=== PATIENT | male | born 1955 | race Caucasian/White ===

== ENCOUNTER 2018-11-30 16:03 | Observation (INO) | payer MEDICARE ==
--- NOTE | 2018-11-30 16:34 | C.PDOC ---
History Of Present Illness Patient is a 63 year old male, with a PMHx of HTN, who presents to the ED for evaluation of a reported syncopal episode that occurred today while patient was in a restaurant. Patient states that he got dizzy and passed out for a few seconds and got up a few seconds later. Baseline currently feels well. No hx of syncopy. Patient denies any CP and is asymptomatic at this time. Time Seen by Provider: 11/30/18 16:30 Chief Complaint (Nursing): Syncope History Per: Patient History/Exam Limitations: no limitations Onset/Duration Of Symptoms: Hrs Recent travel outside of the [place]: No Additional History Per: Patient Past Medical History Reviewed: Historical Data, Nursing Documentation, Vital Signs Vital Signs: Last Vital Signs Temp 98 F 11/30/18 16:22 Pulse 68 11/30/18 16:22 Resp 16 11/30/18 16:22 BP 138/80 11/30/18 16:22 Pulse Ox 98 11/30/18 16:22 - Medical History PMH: HTN Surgical History: No Surg Hx Family History: States: Hypertension - Social History Hx Tobacco Use: No Hx Alcohol Use: No Hx Substance Use: No - Immunization History Hx Tetanus Toxoid Vaccination: No Hx Influenza Vaccination: No Hx Pneumococcal Vaccination: No Review Of Systems Except As Marked, All Systems Reviewed And Found Negative. Cardiovascular: Negative for: Chest Pain Neurological: Positive for: Dizziness, Other (syncopal episode) Physical Exam - Physical Exam Appears: Non-toxic, No Acute Distress Skin: Normal Color, Warm, Dry Head: Atraumatic, Normacephalic Oral Mucosa: Moist Neck: Normal ROM, Supple Chest: Symmetrical, No Deformity Cardiovascular: Rhythm Regular, No Murmur Respiratory: Normal Breath Sounds, No Rales, No Rhonchi, No Wheezing Gastrointestinal/Abdominal: Soft, No Tenderness Extremity: Normal ROM Neurological/Psych: Oriented x3, Normal Speech, Normal Cognition, Normal Cranial Nerves, Normal Motor, Normal Sensation, Normal Reflexes ED Course And Treatment - Laboratory Results Result Diagrams: 11/30/18 16:44 11/30/18 16:44 ECG: Interpreted By Me, Viewed By Me ECG Rhythm: Sinus Rhythm Interpretation Of ECG: No ST/T wave changes Rate From EC O2 Sat by Pulse Oximetry: 98 (on RA) Medical Decision Making Medical Decision Making: syncope, - ro cardiac metabolci vasovagal. intracranil pathology Plan: CAT Head EKG Labs CXR Urinalysis labs neg ct neg. cxr neg. pmd deb covered by dr robert, who admits to dr alex galvez. Disposition - Disposition Disposition: HOSPITALIZED Disposition Time: 17:37 Condition: STABLE - Clinical Impression Clinical Impression: Syncope Decision To Admit - Pt Status Changed To: Hospital Disposition Of: Observation - . Bed Request Type: Telemetry Admitting Physician: Kane Galvez Patient Diagnosis: Syncope
[2018-11-30 16:48] LABS: BASO % 0.6 % (0.0-2.0); EOS # 0.2 K/uL (0.0-0.7); EOS % 2.7 % (0.0-4.0); LYMPH # 2.6 K/uL (1.0-4.3); LYMPH % 36.4 % (20.0-40.0); MEAN CELL VOLUME 88.8 fL (80.0-94.0); MEAN CORPUSCULAR HEMOGLOBIN 29.8 pg (27.0-31.0); MEAN CORPUSCULAR HGB CONC 33.6 g/dL (33.0-37.0); MEAN PLATELET VOLUME 8.4 fL (7.2-11.7); MONO # 0.4 K/uL (0.0-0.8); MONO % 5.8 % (0.0-10.0); NEUT # 3.9 K/uL (1.8-7.0); NEUT % 54.5 % (50.0-75.0); NRBC % 0.1 % (0.0-2.0); RBC 4.36 Mil/uL (4.40-5.90); RED CELL DISTRIBUTION WIDTH 13.9 % (11.5-14.5); WHITE BLOOD COUNT 7.2 K/uL (4.8-10.8)
[2018-11-30 16:57] LABS: INR 1.1; PROTHROMBIN TIME 11.6 SECONDS (9.7-12.2)
--- NOTE | 2018-11-30 17:07 | CT ---
Date of service: 11/30/2018 PROCEDURE: CT HEAD WITHOUT CONTRAST. HISTORY: syncope COMPARISON: None available. TECHNIQUE: Axial computed tomography images were obtained through the head/brain without intravenous contrast. Supplemental Coronal and Sagittal projections created and reviewed. Radiation dose: Total exam DLP = 1076.02 mGy-cm. This CT exam was performed using one or more of the following dose reduction techniques: Automated exposure control, adjustment of the mA and/or kV according to patient size, and/or use of iterative reconstruction technique. FINDINGS: HEMORRHAGE: No intracranial hemorrhage. BRAIN: No mass effect or edema. No atrophy or chronic microvascular ischemic changes. VENTRICLES: Unremarkable. No hydrocephalus. CALVARIUM: Unremarkable. PARANASAL SINUSES: Unremarkable as visualized. No significant inflammatory changes. MASTOID AIR CELLS: Unremarkable as visualized. No inflammatory changes. OTHER FINDINGS: None. IMPRESSION: No acute intracranial abnormalities. No significant findings to account for the clinical presentation.
[2018-11-30 17:18] LABS: ALB/GLOB RATIO 1.4 (1.0-2.1); ALBUMIN 4.5 g/dL (3.5-5.0); ALT/SGPT 12 U/L (21-72); AST/SGOT 20 U/L (17-59); BLOOD UREA NITROGEN 22 mg/dL (9-20); CALCIUM 9.6 mg/dl (8.6-10.4); GFR NON-AFRICAN AMERICAN 47
--- NOTE | 2018-11-30 17:37 | RAD ---
Date of service: 11/30/2018 PROCEDURE: CHEST RADIOGRAPH, 1 VIEW HISTORY: chest pain COMPARISON: None available. FINDINGS: LUNGS: Clear. PLEURA: No pneumothorax or pleural fluid seen. CARDIOVASCULAR: No aortic atherosclerotic calcification present. No radiographic findings to suggest acute or significant cardiovascular disease. OSSEOUS STRUCTURES: No significant abnormalities. VISUALIZED UPPER ABDOMEN: Normal. OTHER FINDINGS: None. IMPRESSION: No active disease.
[2018-11-30 18:20] LABS: URINE BILIRUBIN NEGATIVE (NEGATIVE); URINE BLOOD NEGATIVE (NEGATIVE); URINE CLARITY Clear (Clear); URINE COLOR Yellow (YELLOW); URINE GLUCOSE (UA) NORMAL (Normal); URINE LEUKOCYTE ESTERASE NEG Leu/uL (Negative); URINE PROTEIN NEGATIVE (NEGATIVE); URINE UROBILINOGEN NORMAL mg/dL (0.2-1.0)
--- NOTE | 2018-11-30 20:12 | CP.PCM.HP ---
Past Patient History - Infectious Disease Hx of Infectious Diseases: None - Past Social History Smoking Status: Never Smoked - CARDIAC Hx Hypertension: Yes - PSYCHIATRIC Hx Substance Use: No - SURGICAL HISTORY Hx Surgeries: No - ANESTHESIA Hx Anesthesia: No Meds Allergies/Adverse Reactions: Allergies Allergy/AdvReac Type Severity Reaction Status Date / Time No Known Allergies Allergy Unverified 11/03/13 11:09 Physical Exam - Constitutional Appears: Well - Head Exam Head Exam: ATRAUMATIC, NORMAL INSPECTION, NORMOCEPHALIC - Eye Exam Eye Exam: EOMI, Normal appearance, PERRL Pupil Exam: NORMAL ACCOMODATION, PERRL - ENT Exam ENT Exam: Mucous Membranes Moist, Normal Exam - Neck Exam Neck exam: Positive for: Normal Inspection - Respiratory Exam Respiratory Exam: Decreased Breath Sounds - Cardiovascular Exam Cardiovascular Exam: REGULAR RHYTHM, +S1, +S2 - GI/Abdominal Exam GI & Abdominal Exam: Diminished Bowel Sounds, Soft - Rectal Exam Rectal Exam: Deferred Results - Vital Signs Recent Vital Signs: Last Vital Signs Temp 98 F 11/30/18 16:22 Pulse 76 11/30/18 17:50 Resp 15 11/30/18 17:50 BP 141/90 11/30/18 17:50 Pulse Ox 98 11/30/18 17:50 - Labs Result Diagrams: 11/30/18 16:44 11/30/18 16:44 Labs: Laboratory Results - last 24 hr 11/30/18 11/30/18 11/30/18 16:31 16:44 16:44 WBC 7.2 RBC 4.36 L Hgb 13.0 Hct 38.7 MCV 88.8 MCH 29.8 MCHC 33.6 RDW 13.9 Plt Count 262 MPV 8.4 Neut % (Auto) 54.5 Lymph % (Auto) 36.4 [place] % (Auto) 5.8 Eos % (Auto) 2.7 Baso % (Auto) 0.6 Neut # (Auto) 3.9 Lymph # (Auto) 2.6 [place] # (Auto) 0.4 Eos # (Auto) 0.2 Baso # (Auto) 0.0 PT 11.6 INR 1.1 APTT 31 Sodium Potassium Chloride Carbon Dioxide Anion Gap BUN Creatinine Est GFR ( Amer) Est GFR (Non-Af Amer) POC Glucose (mg/dL) 186 H Random Glucose Calcium Total Bilirubin AST ALT Alkaline Phosphatase Troponin I Total Protein Albumin Globulin Albumin/Globulin Ratio Urine Color Urine Clarity Urine pH Ur Specific [place] Urine Protein Urine Glucose (UA) Urine Ketones Urine Blood Urine Nitrate Urine Bilirubin Urine Urobilinogen Ur Leukocyte Esterase Urine WBC (Auto) Urine RBC (Auto) Hyaline Casts 11/30/18 11/30/18 16:44 18:07 WBC RBC Hgb Hct MCV MCH MCHC RDW Plt Count MPV Neut % (Auto) Lymph % (Auto) [place] % (Auto) Eos % (Auto) Baso % (Auto) Neut # (Auto) Lymph # (Auto) [place] # (Auto) Eos # (Auto) Baso # (Auto) PT INR APTT Sodium 137 Potassium 4.0 Chloride 100 Carbon Dioxide 28 Anion Gap 14 BUN 22 H Creatinine 1.5 Est GFR ( Amer) 57 Est GFR (Non-Af Amer) 47 POC Glucose (mg/dL) Random Glucose 226 H Calcium 9.6 Total Bilirubin 0.4 AST 20 ALT 12 L Alkaline Phosphatase 84 Troponin I < 0.0120 Total Protein 7.7 Albumin 4.5 Globulin 3.2 Albumin/Globulin Ratio 1.4 Urine Color Yellow Urine Clarity Clear Urine pH 7.0 Ur Specific [place] 1.015 Urine Protein Negative Urine Glucose (UA) Normal Urine Ketones Negative Urine Blood Negative Urine Nitrate Negative Urine Bilirubin Negative Urine Urobilinogen Normal Ur Leukocyte Esterase Neg Urine WBC (Auto) < 1 Urine RBC (Auto) 1 Hyaline Casts 3-5 H
[2018-12-01 11:07] LABS: CK-MB 0.59 ng/mL (0.0-3.38)
--- NOTE | 2018-12-01 15:40 | CP.PCM.PN ---
Subjective - Date & Time of Evaluation Date of Evaluation: 12/01/18 Objective - Vital Signs/Intake and Output Vital Signs (last 24 hours): Temp Pulse Resp BP Pulse Ox 98.1 F 68 20 113/71 97 12/01/18 07:50 12/01/18 07:50 12/01/18 07:50 12/01/18 07:50 12/01/18 07:50 - Medications Medications: Current Medications Heparin Sodium (Porcine) (Heparin) 5,000 units SC Q12 [facility] Last Admin: 12/01/18 13:01 Dose: 5,000 units - Labs Labs: 11/30/18 16:44 11/30/18 16:44 PT 11.6 SECONDS (9.7-12.2) 11/30/18 16:44 INR 1.1 11/30/18 16:44 APTT 31 SECONDS (21-34) 11/30/18 16:44 - Constitutional Appears: Well - Head Exam Head Exam: ATRAUMATIC, NORMAL INSPECTION, NORMOCEPHALIC - Eye Exam Eye Exam: EOMI, Normal appearance, PERRL Pupil Exam: NORMAL ACCOMODATION, PERRL - ENT Exam ENT Exam: Mucous Membranes Moist, Normal Exam - Neck Exam Neck Exam: Full ROM, Normal Inspection. absent: Lymphadenopathy - Respiratory Exam Respiratory Exam: Decreased Breath Sounds - Cardiovascular Exam Cardiovascular Exam: REGULAR RHYTHM, +S1, +S2 - GI/Abdominal Exam GI & Abdominal Exam: Soft, Diminished Bowel Sounds - Rectal Exam Rectal Exam: Deferred
--- NOTE | 2018-12-01 16:17 | MRI ---
Date of service: 12/01/2018 PROCEDURE: MRI BRAIN WITHOUT CONTRAST HISTORY: Rule out stroke versus mass COMPARISON: Comparison made with prior CT scan brain 11/30/2018 TECHNIQUE: Multiplanar, multisequence MR images of the brain were obtained without intravenous contrast enhancement. FINDINGS: HEMORRHAGE: No acute parenchymal, subarachnoid nor extra-axial hemorrhage. No evidence of hemosiderin deposition is identified on gradient echo weighted sequence. DWI: No evidence of an acute or early subacute infarct seen on diffusion imaging. BRAIN PARENCHYMA: Minor chronic periventricular white matter ischemic changes. There are also several small chronic appearing lacunar type infarcts scattered about the deep and subcortical white matter both cerebral hemispheres and both basal nuclei. Mild to moderate generalized volume loss unchanged. VENTRICLES: No obstructive hydrocephalus CRANIUM: Unremarkable. ORBITS: Grossly unremarkable. PARANASAL SINUSES/MASTOIDS: Clear VASCULAR SYSTEM: Visualized major vascular flow voids at skull base patent. OTHER FINDINGS: None. IMPRESSION: No acute intracranial hemorrhage or infarction. Minor chronic periventricular white matter ischemic changes. There are also several small chronic appearing lacunar type infarcts scattered about the deep and subcortical white matter both cerebral hemispheres and both basal nuclei. Mild to moderate generalized volume loss unchanged.
[2018-12-01 17:20] LABS: CK-MB 0.57 ng/mL (0.0-3.38)
[2018-12-01] MEDS: (Novolin R) Insulin Human Regular 100 units/ml vial SC SCH (22:02)
[2018-12-02] MEDS: (Novolin R) Insulin Human Regular 100 units/ml vial SC SCH ×4 (08:32→21:58)
--- NOTE | 2018-12-02 13:06 | CP.PCM.CON ---
History of Present Illness - History of Present Illness History of Present Illness: RECURRENT SYNCOPE VBI/NON CONVULSIVE SEIZURES MRI/CT NO ACUTE PATHOLOGY CONTINUE STROKE PROPHYLAXIS EEG NO AED NEEDS AVEEG - CAN BE DONE AN OP CARDIAC ARRHYTHMIA TO BE RULED OUT MAY NEED EP STUDIES IF ALL WORK UP IS NEGATIVE Past Patient History - Infectious Disease Hx of Infectious Diseases: None - Past Social History Smoking Status: Never Smoked - CARDIAC Hx Hypertension: Yes - PSYCHIATRIC Hx Substance Use: No - SURGICAL HISTORY Hx Surgeries: No - ANESTHESIA Hx Anesthesia: No Meds Allergies/Adverse Reactions: Allergies Allergy/AdvReac Type Severity Reaction Status Date / Time No Known Allergies Allergy Unverified 11/03/13 11:09 - Medications Medications: Current Medications Aspirin (Aspirin) 325 mg PO DAILY [facility] Last Admin: 12/02/18 09:31 Dose: 325 mg Heparin Sodium (Porcine) (Heparin) 5,000 units SC Q12 [facility] Last Admin: 12/02/18 09:31 Dose: 5,000 units Insulin Human Regular (Novolin R) 0 unit SC ACHS [facility]; Protocol Last Admin: 12/02/18 12:08 Dose: Not Given Results - Vital Signs Recent Vital Signs: Last Vital Signs Temp 97.9 F 12/02/18 07:30 Pulse 72 12/02/18 09:00 Resp 20 12/02/18 07:30 BP 117/75 12/02/18 07:30 Pulse Ox 97 12/02/18 09:00 - Labs Result Diagrams: 11/30/18 16:44 11/30/18 16:44 Labs: Laboratory Results - last 24 hr 12/01/18 12/01/18 12/01/18 16:50 17:43 21:15 POC Glucose (mg/dL) 92 123 H Total Creatine Kinase 128 CK-MB (Mass) 0.57 Troponin I < 0.0120 12/02/18 12/02/18 05:50 11:01 POC Glucose (mg/dL) 99 129 H Total Creatine Kinase CK-MB (Mass) Troponin I
[2018-12-02 14:34] LABS: FREE T4 1.57 ng/dL (0.78-2.19)
--- NOTE | 2018-12-02 15:46 | CP.PCM.PN ---
Subjective - Date & Time of Evaluation Date of Evaluation: 12/02/18 Objective - Vital Signs/Intake and Output Vital Signs (last 24 hours): Temp Pulse Resp BP Pulse Ox 97.9 F 72 20 117/75 97 12/02/18 07:30 12/02/18 09:00 12/02/18 07:30 12/02/18 07:30 12/02/18 13:00 - Medications Medications: Current Medications Aspirin (Aspirin) 325 mg PO DAILY [facility] Last Admin: 12/02/18 09:31 Dose: 325 mg Heparin Sodium (Porcine) (Heparin) 5,000 units SC Q12 [facility] Last Admin: 12/02/18 09:31 Dose: 5,000 units Insulin Human Regular (Novolin R) 0 unit SC ACHS [facility]; Protocol Last Admin: 12/02/18 12:08 Dose: Not Given - Labs Labs: 11/30/18 16:44 11/30/18 16:44 PT 11.6 SECONDS (9.7-12.2) 11/30/18 16:44 INR 1.1 11/30/18 16:44 APTT 31 SECONDS (21-34) 11/30/18 16:44 - Constitutional Appears: Well - Head Exam Head Exam: ATRAUMATIC, NORMAL INSPECTION, NORMOCEPHALIC - Eye Exam Eye Exam: EOMI, Normal appearance, PERRL Pupil Exam: NORMAL ACCOMODATION, PERRL - ENT Exam ENT Exam: Mucous Membranes Moist, Normal Exam - Neck Exam Neck Exam: Full ROM, Normal Inspection. absent: Lymphadenopathy - Respiratory Exam Respiratory Exam: Decreased Breath Sounds - Cardiovascular Exam Cardiovascular Exam: REGULAR RHYTHM, +S1, +S2 - GI/Abdominal Exam GI & Abdominal Exam: Soft, Diminished Bowel Sounds - Rectal Exam Rectal Exam: Deferred
--- NOTE | 2018-12-03 01:55 | CON ---
DATE: 12/02/2018 NEUROLOGY CONSULTATION TIME OF EVALUATION: 12:30 p.m. ATTENDING PHYSICIAN: Cassandra Manzo MD LOCATION: Room 553, bed A. REASON FOR CONSULTATION: Syncopal attack. CHIEF COMPLAINT: The patient was brought in by the EMS with a history of syncopal attack while he was in the restaurant. From a neurological point of view, I was called in to evaluate him for further management. HISTORY OF PRESENT ILLNESS: Mr. Derek Butcher is a 63-year-old right-handed Romansh-speaking male presenting with syncopal attack while he was in the restaurant. He was sitting and eating food, immediately started to feel lightheaded and blurred vision. Next thing, he was on the floor. No history of witnessed tonic-clonic activity or bowel or bladder incontinence at the time. No history of head trauma. This lasted for about 20 to 30 seconds. He claims that he has similar episodes that happened a month ago which he did not require any medical attention at that time. At present, he denies any new complaints. PAST MEDICAL HISTORY: Hypertension, dyslipidemia. PERSONAL HISTORY: Denies smoking or alcohol use. ALLERGIES: NO KNOWN ALLERGIES. REVIEW OF SYSTEMS: A 12-point system being reviewed. From neuro, syncopal attack. MEDICATIONS: Aspirin, insulin and carvedilol. PHYSICAL EXAMINATION: VITAL SIGNS: Blood pressure 117/75 with mean arterial pressure of 89, respiratory rate 18, temperature 97.9, pulse rate 72 and regular. NECK: Supple. No carotid bruits. HEART: Heart sounds regular. CHEST: Fair air entry. EXTREMITIES: No edema in legs. NEUROLOGIC EXAMINATION: MENTAL STATUS EXAMINATION: He is awake, alert, oriented to person, place and time. Speech is clear. Naming, repetition, fluency, comprehension all intact. He is communicable only in Romansh. CRANIAL NERVE EXAMINATION: Visual field intact. Pupils reactive to light. Extraocular movements normal. No nystagmus. No facial sensory deficit. No facial asymmetry. Hearing is normal. Tongue is midline. Good gag. MOTOR EXAMINATION: Outstretched hand with eyes closed. No drift noted. Power is symmetric on either side. Deep tendon reflexes biceps, brachialis, triceps 1+ on either side. Both knees are absent. Both ankles are absent. Plantars are downgoing. SENSORY EXAMINATION: Grossly intact. Mild sensory motor neuropathy. No cortical sensory loss. Gait normal. Romberg sign negative. CONCLUSION: On reviewing history from the medical records as well as from the patient, the patient did have recurrent episode of syncopal attack. From the neurological point of view, nonconvulsive seizures versus vertebrobasilar insufficiency should be ruled out. However, other possible cardiac causes including cardiac arrhythmias should be ruled out. WORKUP: CT of the head and the MRI of the brain being reviewed by me showed small vessel disease which is probably secondary to his underlying hypertension and diabetes mellitus. EKG normal sinus rhythm. Blood workup: WBC 7.2, hemoglobin 13.1, hematocrit 38.7, platelets 262. PT 11.6, INR 1.1, PTT 31. Sodium 137, potassium 4, chloride 100, bicarbonate 28, BUN 22, creatinine 1.5 with GFR of 47, glucose 123. AST 28, ALT 12. Urinalysis negative. RECOMMENDATIONS: 1. The patient should be kept seizure precaution. 2. Carotid Doppler to rule out significant stenosis. 3. EEG to rule out any seizure activities. 4. Diabetic control and blood pressure control. Keep the mean artery pressure around 100. If cardiac connors the patient is stable and medically stable, the patient can be discharged and the patient can be followed by me as outpatient. Tremayne Belle MD
[2018-12-03] MEDS: (Novolin R) Insulin Human Regular 100 units/ml vial SC SCH ×4 (07:25→22:02)
--- NOTE | 2018-12-03 08:54 | PN ---
DATE: 12/03/2018 TIME OF EVALUATION: 7:10 a.m. NEUROLOGICAL PROBLEM: Syncopal episode, rule out neurogenic cause. PHYSICAL EXAMINATION: VITAL SIGNS: Blood pressure 100/63, mean arterial pressure of 75, respiratory rate 16, temperature 97.8. GENERAL: The patient is arousable on calling his first name. No new episodes while he is in the hospital. Examination which is unchanged to compare with the previous examination. RECOMMENDATION: 1. Continue the stroke prophylaxis as he has been getting it. 2. Recommended electroencephalogram is pending, which will be probably done today. If medically stable, the patient can be discharged and should have a followup visit with me as outpatient. Tremayne Belle MD
[2018-12-03] MEDS ORDERED: Caffeine Citrated **INJ** 20 MG/ML IV ONE (09:04)
--- NOTE | 2018-12-03 09:06 | CP.PCM.PN ---
Subjective - Date & Time of Evaluation Date of Evaluation: 12/03/18 Time of Evaluation: 09:04 - Subjective Subjective: PGY-2 Progress Note Patient seen at bedside. Patient en route for EEG, stress test and echocardiogram. 63 year old male with a past medical history of diabetes initially presented to the emergency department after having a syncopal episode while at a restaurant. Patient states he got up from his chair began to feel dizzy and loss consciousness for a couple of seconds. Patient denies any symptoms similar in the past. Patient denies any fevers, chills, headaches, changes in vision, abdominal pain ,or any other complaints. Medical history: diabetes Allergies: Denies Objective - Vital Signs/Intake and Output Vital Signs (last 24 hours): Temp Pulse Resp BP Pulse Ox 97.8 F 74 20 116/70 97 12/03/18 08:51 12/03/18 08:51 12/03/18 08:51 12/03/18 08:51 12/03/18 08:51 - Medications Medications: Current Medications Aspirin (Aspirin) 325 mg PO DAILY [facility] Last Admin: 12/02/18 09:31 Dose: 325 mg Heparin Sodium (Porcine) (Heparin) 5,000 units SC Q12 [facility] Last Admin: 12/02/18 21:16 Dose: Not Given Insulin Human Regular (Novolin R) 0 unit SC ACHS [facility]; Protocol Last Admin: 12/03/18 07:25 Dose: Not Given - Labs Labs: 11/30/18 16:44 11/30/18 16:44 PT 11.6 SECONDS (9.7-12.2) 11/30/18 16:44 INR 1.1 11/30/18 16:44 APTT 31 SECONDS (21-34) 11/30/18 16:44 - Head Exam Head Exam: ATRAUMATIC, NORMAL INSPECTION - Eye Exam Eye Exam: EOMI, Normal appearance, PERRL. absent: Periorbital tenderness Pupil Exam: NORMAL ACCOMODATION, PERRL. absent: Irregular, Unequal - ENT Exam ENT Exam: Mucous Membranes Moist, Normal Oropharynx - Respiratory Exam Respiratory Exam: Clear to Ausculation Bilateral, NORMAL BREATHING PATTERN. absent: Prolonged Expiratory Phase, Respiratory Distress - Cardiovascular Exam Cardiovascular Exam: REGULAR RHYTHM, +S1, +S2 - GI/Abdominal Exam GI & Abdominal Exam: Soft, Normal Bowel Sounds. absent: Hyperactive Bowel Sounds - Extremities Exam Extremities Exam: Full ROM, Normal Inspection. absent: Pedal Edema - Back Exam Back Exam: NORMAL INSPECTION. absent: paraspinal tenderness - Neurological Exam Neurological Exam: Alert, Awake, CN II-XII Intact, Oriented x3 - Psychiatric Exam Psychiatric exam: Normal Affect, Normal Mood - Skin Skin Exam: Dry, Intact Assessment and Plan - Assessment and Plan (Free Text) Assessment: 63 year old male with a past medical history of diabetes initially presented to the emergency department after having a syncopal episode while at a restaurant. Plan: 1. Syncope Head ct: negative for any acute abnormalities Head MRI: negative for any acute abnormalities; chronic lacunar infarcts Cartoid doppler taken. Pending final read Echocardiogram EF: 58% Grade 1 relaxation pattern Stress test completed. Will f/u with results. Neurology Dr. Belle consulted Cardiology Dr. Bobby consulted---> Help appreciated. 2. Diabetes Mellitus Type 2 -ISS ACHS -Hypoglycemic protocol PPX -Heparin All management per Attending Dr. Martine Manzo. Joshua Payan, PGY-2
--- NOTE | 2018-12-03 11:02 | CARD ---
APPROVED REPORT Date of service: 12/03/2018 EXAM: Two-dimensional and M-mode echocardiogram with Doppler and color Doppler. INDICATION Syncope RISK FACTORS Hypertension 2D DIMENSIONS IVSd0.9 (0.7-1.1cm)LVDd3.9 (3.9-5.9cm) PWd0.9 (0.7-1.1cm)LA Cusktn53 (18-58mL) LVDs2.2 (2.5-4.0cm)FS (%) 43.3 % LVEF (%)65.0 (>50%)LVEF (Sanchez's)58.47 % IVC0.00 cm M-Mode DIMENSIONS RVDd2.35 (2.1-3.2cm)Left Atrium (MM)3.73 (2.5-4.0cm) IVSd0.73 (0.7-1.1cm)Aortic Root3.40 (2.2-3.7cm) LVDd4.40 (4.0-5.6cm)Aortic Cusp Exc.2.36 (1.5-2.0cm) PWd0.91 (0.7-1.1cm)FS (%) 40 % LVDs2.38 (2.0-3.8cm)LVEF (%)70 (>50%) Aortic Valve AI P 1/2 [id number] Mitral Valve MV E Hlaqatap65.2cm/sMV A Tbwkbpsc87.7cm/sE/A ratio1.1 TDI Lateral E' Peak V10.03cm/sMedial E' Peak V4.80cm/sE/Lateral E'6.2 E/Medial E'13.0 Tricuspid Valve TR Peak Fimdegsm230jc/sTR Peak Gr.[id number] LEFT VENTRICLE The left ventricle is normal size. There is normal left ventricular wall thickness. The left ventricular function is normal. The left ventricular ejection fraction is within the normal range. There is normal LV segmental wall motion. Transmitral Doppler flow pattern is Grade I-abnormal relaxation pattern. RIGHT VENTRICLE The right ventricle is normal size. There is normal right ventricular wall thickness. The right ventricular systolic function is normal. AORTIC VALVE The aortic valve is mildly thickened. There is trace aortic regurgitation. There is no aortic valvular stenosis. MITRAL VALVE The mitral valve is normal in structure. There is no evidence of mitral valve prolapse. There is no mitral valve stenosis. There is no mitral valve regurgitation noted. TRICUSPID VALVE The tricuspid valve is normal in structure. There is trace tricuspid regurgitation. PULMONIC VALVE The pulmonary valve is normal in structure. There is trace pulmonic valvular regurgitation. GREAT VESSELS The aortic root is mildly enlarged. The aortic root is normal in size. The IVC is normal in size and collapses >50% with inspiration. PERICARDIAL EFFUSION There is no pericardial effusion. <Conclusion> There is normal left ventricular wall thickness. The left ventricular function is normal. The left ventricular ejection fraction is within the normal range. There is normal LV segmental wall motion. Transmitral Doppler flow pattern is Grade I-abnormal relaxation pattern.
--- NOTE | 2018-12-03 19:57 | CP.PCM.PN ---
Subjective - Date & Time of Evaluation Date of Evaluation: 12/03/18 - Subjective Subjective: patient seen and examined at bedside patient denies fever, nausea, shortness of breath, headaches Objective - Vital Signs/Intake and Output Vital Signs (last 24 hours): Temp Pulse Resp BP Pulse Ox 97.8 F 83 20 107/71 95 12/03/18 16:30 12/03/18 16:30 12/03/18 16:30 12/03/18 16:30 12/03/18 16:30 - Medications Medications: Current Medications Aspirin (Aspirin) 325 mg PO DAILY [facility] Last Admin: 12/03/18 12:10 Dose: Not Given Heparin Sodium (Porcine) (Heparin) 5,000 units SC Q12 [facility] Last Admin: 12/03/18 12:11 Dose: Not Given Insulin Human Regular (Novolin R) 0 unit SC ACHS [facility]; Protocol Last Admin: 12/03/18 17:56 Dose: Not Given - Labs Labs: 11/30/18 16:44 11/30/18 16:44 PT 11.6 SECONDS (9.7-12.2) 11/30/18 16:44 INR 1.1 11/30/18 16:44 APTT 31 SECONDS (21-34) 11/30/18 16:44 - Constitutional Appears: Well - Head Exam Head Exam: ATRAUMATIC, NORMAL INSPECTION, NORMOCEPHALIC - Eye Exam Eye Exam: EOMI, Normal appearance, PERRL Pupil Exam: NORMAL ACCOMODATION, PERRL - ENT Exam ENT Exam: Mucous Membranes Moist, Normal Exam - Neck Exam Neck Exam: Full ROM, Normal Inspection. absent: Lymphadenopathy - Respiratory Exam Respiratory Exam: Decreased Breath Sounds - Cardiovascular Exam Cardiovascular Exam: REGULAR RHYTHM, +S1, +S2 - GI/Abdominal Exam GI & Abdominal Exam: Soft, Diminished Bowel Sounds - Rectal Exam Rectal Exam: Deferred Assessment and Plan - Assessment and Plan (Free Text) Plan: discussed treatment plan with staff images and labs reviewed Novolin R aspirin Heparin
[2018-12-04] MEDS: (Novolin R) Insulin Human Regular 100 units/ml vial SC SCH ×2 (07:30→13:01)
--- NOTE | 2018-12-04 07:57 | EEG ---
DATE: 12/03/2018 This is a 16-channel electroencephalogram of awake and drowsy adult. During the study, low-amplitude fast beta activity seen at frontal and central leads. This is followed with a low-amplitude delta activity seen which is consistent with early drowsiness. The photic stimulation did not evoke driving response noted at 2 to 20 Hz. IMPRESSION: This is abnormal electroencephalogram because of persistent slowing throughout the record which is superimposed with fast beta activity which is probably secondary to drug effect. However during the study, neither paroxysmal activities nor focal slowing noted. Tremayne Belle MD
[2018-12-04 07:58] VITALS: BP 113/77; PULSE 82; RESP 20; TEMP 97.9; O2SAT 98
--- NOTE | 2018-12-04 09:03 | CP.PCM.CON ---
History of Present Illness - History of Present Illness History of Present Illness: Consultation for evaluation of syncope HPI: 63-year-old male with past medical history significant for hypertension who was admitted after having an episode of syncope according to the patient he was sitting in his room when he started having a dizzy spell and felt he was going to pass out and had a fall lost consciousness for a few seconds of late he has noticed recurrent episodes of dizziness but did not have complete syncopal episode denies having any chest pains or shortness of breath been evaluated by neurology MRI and CAT scan showed no acute pathology patient being planned for possible video EEG being monitored on the telemetry with no evidence of cardiac arrhythmias. He does noticed lately getting fatigued and lethargic with mild dyspnea on exertion over the course of last few weeks. Review of Systems - Review of Systems Systems not reviewed;Unavailable: Acuity of Condition - Constitutional Constitutional: As Per HPI - EENT Eyes: As Per HPI Ears: As Per HPI Nose/Mouth/Throat: As Per HPI - Cardiovascular Cardiovascular: As Per HPI - Respiratory Respiratory: As Per HPI - Gastrointestinal Gastrointestinal: As Per HPI - Genitourinary Genitourinary: As Per HPI - Reproductive: Male Reproductive:Male: As Per HPI - Musculoskeletal Musculoskeletal: As Per HPI - Integumentary Integumentary: As Per HPI - Neurological Neurological: As Per HPI - Psychiatric Psychiatric: As Per HPI - Endocrine Endocrine: As Per HPI - Hematologic/Lymphatic Hematologic: As Per HPI Past Patient History - Infectious Disease Hx of Infectious Diseases: None - Past Medical History & Family History Past Medical History?: Yes - Past Social History Smoking Status: Never Smoked - CARDIAC Hx Cardiac Disorders: Yes Hx Hypertension: Yes - PULMONARY Hx Respiratory Disorders: No - NEUROLOGICAL Hx Neurological Disorder: No - HEENT Hx HEENT Problems: No - RENAL Hx Chronic Kidney Disease: No - ENDOCRINE/METABOLIC Hx Endocrine Disorders: No - HEMATOLOGICAL/ONCOLOGICAL Hx Blood Disorders: No - INTEGUMENTARY Hx Dermatological Problems: No - MUSCULOSKELETAL/RHEUMATOLOGICAL Hx Falls: Yes (syncope) - GASTROINTESTINAL Hx Gastrointestinal Disorders: No - GENITOURINARY/GYNECOLOGICAL Hx Genitourinary Disorders: No - PSYCHIATRIC Hx Substance Use: No - SURGICAL HISTORY Hx Surgeries: No - ANESTHESIA Hx Anesthesia: No Hx Anesthesia Reactions: No Hx Malignant Hyperthermia: No Has any member of the family had a problem w/ anesthesia?: No Meds Allergies/Adverse Reactions: Allergies Allergy/AdvReac Type Severity Reaction Status Date / Time No Known Allergies Allergy Unverified 11/03/13 11:09 - Medications Medications: Current Medications Aspirin (Aspirin) 325 mg PO DAILY [facility] Last Admin: 12/03/18 12:10 Dose: Not Given Heparin Sodium (Porcine) (Heparin) 5,000 units SC Q12 [facility] Last Admin: 12/03/18 22:01 Dose: Not Given Insulin Human Regular (Novolin R) 0 unit SC ACHS [facility]; Protocol Last Admin: 12/03/18 22:02 Dose: Not Given Physical Exam - Constitutional Appears: Well - Head Exam Head Exam: ATRAUMATIC, NORMAL INSPECTION, NORMOCEPHALIC - Eye Exam Eye Exam: EOMI, Normal appearance, PERRL Pupil Exam: NORMAL ACCOMODATION, PERRL - ENT Exam ENT Exam: Mucous Membranes Moist, Normal Exam - Neck Exam Neck exam: Positive for: Normal Inspection - Respiratory Exam Respiratory Exam: Clear to Auscultation Bilateral, NORMAL BREATHING PATTERN - Cardiovascular Exam Cardiovascular Exam: REGULAR RHYTHM, RRR, +S1, +S2, Systolic Murmur - GI/Abdominal Exam GI & Abdominal Exam: Normal Bowel Sounds, Soft. absent: Tenderness - Rectal Exam Rectal Exam: NORMAL INSPECTION - Extremities Exam Extremities exam: Positive for: normal inspection - Back Exam Back exam: NORMAL INSPECTION - Neurological Exam Neurological exam: Alert, CN II-XII Intact, Normal Gait, Oriented x3, Reflexes Normal - Psychiatric Exam Psychiatric exam: Normal Affect, Normal Mood - Skin Skin Exam: Dry, Intact, Normal Color, Warm Results - Vital Signs Recent Vital Signs: Last Vital Signs Temp 97.9 F 12/04/18 07:00 Pulse 82 12/04/18 07:00 Resp 20 12/04/18 07:00 BP 113/77 12/04/18 07:00 Pulse Ox 98 12/04/18 07:00 - Labs Result Diagrams: 11/30/18 16:44 11/30/18 16:44 Labs: Laboratory Results - last 24 hr 12/03/18 12/03/18 12/04/18 17:10 21:48 06:17 POC Glucose (mg/dL) 98 128 H 97 Assessment & Plan (1) Syncope Assessment and Plan: etiology unclear echo stress test Status: Acute (2) CARMEN (dyspnea on exertion) Status: Acute
--- NOTE | 2018-12-04 09:34 | CP.PCM.PN ---
Subjective - Date & Time of Evaluation Date of Evaluation: 12/04/18 Time of Evaluation: 09:33 - Subjective Subjective: PGY-2 Progress Note Patient seen and examined at bedside. Per nursing no acute events occurred overnight. Patient denies any fevers, chills, headaches, dizziness, chest pain, dizziness, syncopal episodes, or any other complaints. Objective - Vital Signs/Intake and Output Vital Signs (last 24 hours): Temp Pulse Resp BP Pulse Ox 97.9 F 82 20 113/77 98 12/04/18 07:00 12/04/18 07:00 12/04/18 07:00 12/04/18 07:00 12/04/18 07:00 Intake and Output: 12/04/18 12/04/18 06:59 18:59 Intake Total 240 Balance 240 - Medications Medications: Current Medications Aspirin (Aspirin) 325 mg PO DAILY [facility] Last Admin: 12/03/18 12:10 Dose: Not Given Heparin Sodium (Porcine) (Heparin) 5,000 units SC Q12 [facility] Last Admin: 12/03/18 22:01 Dose: Not Given Insulin Human Regular (Novolin R) 0 unit SC ACHS [facility]; Protocol Last Admin: 12/03/18 22:02 Dose: Not Given - Labs Labs: 11/30/18 16:44 11/30/18 16:44 PT 11.6 SECONDS (9.7-12.2) 11/30/18 16:44 INR 1.1 11/30/18 16:44 APTT 31 SECONDS (21-34) 11/30/18 16:44 - Head Exam Head Exam: ATRAUMATIC, NORMAL INSPECTION - Eye Exam Eye Exam: EOMI, Normal appearance, PERRL Pupil Exam: NORMAL ACCOMODATION, PERRL - ENT Exam ENT Exam: Mucous Membranes Moist, Normal Oropharynx - Respiratory Exam Respiratory Exam: Clear to Ausculation Bilateral, NORMAL BREATHING PATTERN. absent: Prolonged Expiratory Phase, Respiratory Distress - Cardiovascular Exam Cardiovascular Exam: REGULAR RHYTHM, +S1, +S2 - GI/Abdominal Exam GI & Abdominal Exam: Soft, Normal Bowel Sounds. absent: Hyperactive Bowel Sounds - Exam Exam: NORMAL INSPECTION. absent: Uretheral Discharge - Extremities Exam Extremities Exam: Full ROM, Normal Inspection. absent: Pedal Edema - Back Exam Back Exam: Full ROM, NORMAL INSPECTION. absent: paraspinal tenderness - Neurological Exam Neurological Exam: Alert, Awake, CN II-XII Intact, Oriented x3 - Psychiatric Exam Psychiatric exam: Normal Affect, Normal Mood. absent: Depressed - Skin Skin Exam: Dry, Intact, Normal Color Assessment and Plan - Assessment and Plan (Free Text) Plan: 63 year old male with a past medical history of diabetes initially presented to the emergency department after having a syncopal episode while at a restaurant. Plan: 1. Syncope Head ct: negative for any acute abnormalities Head MRI: negative for any acute abnormalities; chronic lacunar infarcts Cartoid doppler taken. Pending final read Echocardiogram EF: 58% Grade 1 relaxation pattern Stress test completed. Will f/u with results. Neurology Dr. Belle consulted Cardiology Dr. Bobby consulted---> Help appreciated. 2. Diabetes Mellitus Type 2 -ISS ACHS -Hypoglycemic protocol PPX -Heparin Discharge Instructions: 1. F/u with PMD Dr. Martine Manzo within 5 days of discharge. 2. Return to hospital for any new or worsening symptoms. Medications: 1. Aspirin 81 mg PO Daily, #30, No refills 2. Plavix 75mg PO Daily, #30, No refills All management per Attending Dr. Martine Manzo. Joshua Payan, PGY-2
--- NOTE | 2018-12-04 09:45 | CARD ---
APPROVED REPORT Date of service: 12/03/2018 Protocol: ANSON Test Type: NUCLEAR STRESS Test Indications: CP Medications: LIST Medical History: CP Target HR: 155 bpm Resting ECG: normal Resting Heart Rate: 78 bpm Resting Blood Pressure: 128/80mmHg submaximum (85%): 132 bpm TEST SUMMARY [id number]:02..1.075/.0. PRETESTWARM-UP05:260.30.01.131003/80.0. EXERCISESTAGE 103:[id number]/80.0. EXERCISESTAGE 203:[id number]/80.4. EXERCISESTAGE 303:[id number]/80.2. EXERCISESTAGE 400:[id number]/80.4. [id number]:[id number]/80.0. POST EXERCISE Reason for Termination: Fatigue Target HR: Yes Max HR: 162 bpm 105% of Maximum Predicted HR: 155 bpm Exercise duration: 09:31 min:sec, 4 Stage Exercise capacity: 11.8METs Max Blood Pressure: 160/80mmHg Blood Pressure response to exercise: normal resting BP - appropriate response Heart Rate response to exercise: appropriate Chest Pain: No, none Angina index: 0 Arrhythmia: No, none ST Change: No, none Deviation: 0 mm EXAM: Myocardial Perfusion REST/STRESS Imaging Protocol The imaging protocol used to acquire images was Rest Tc-99m/stress Tc-99m 1 day Rest Spect myocardial perfusion imaging was performed in supine position 45 minutes following the injection of 12.5 mCi of Tc-99 Myoview. Gated Stress Spect was performed 45 minutes after intravenous 32.5 mCi Tc-99 Myoview injection. The images were gated to evaluate regional wall motion and calculate ventricular ejection fraction.Images were reconstructed using backfilter projection method in short horizontal and verticle long axis. Spect slices were generated. RESTING DATA EDV62.16lgPP8.90L/min ESV15.00mlMyocardial Kscd766.00g Av. Heart Rate61.00bpm EF76.00% STRESS DATA EDV37.24ewSV9.50L/min ESV6.00mlMyocardial Mass85.00g EF84.00% Regional WT score at stress:3.00 Regional WM score at stress:0.00 Summed WT score at stress:15.00 Av. Heart Rate80.00bpmSummed WM score at stress:1.00 Study quality was good. Left Ventricular size was Normal at Rest and Stress. The rest and stress images show normal perfusion, normal contraction and thickening. LV Perf. Quant 17 Seg. SSS0.00 17 Seg. SRS0.00 17 Seg. SDS0.00 Stress Defect Extent (% LAD)0.00Rest Defect Extent (% LAD)0.00Rev. Defect Extent (% LAD)0.00 Stress Defect Extent (% LCX)8.80Rest Defect Extent (% LCX)12.50Rev. Defect Extent (% LCX)0.00 Stress Defect Extent (% RCA)0.00Rest Defect Extent (% RCA)0.00Rev. Defect Extent (% RCA)0.00 Stress Defect Extent (% BONIFACIO)1.50Rest Defect Extent (% BONIFACIO)2.20Rev. Defect Extent (% BONIFACIO)0.00 Other Information Quality:Good Overall Exercise Capacity: Good IMPRESSION Normal Myocardial Perfusion exercise stress study Conclusion 1. - Normal myocardial perfusion study with no evidence of ischemia 2. - Normal LVEF
--- NOTE | 2018-12-04 11:29 | CP.PCM.PN ---
Subjective - Date & Time of Evaluation Date of Evaluation: 12/04/18 Objective - Vital Signs/Intake and Output Vital Signs (last 24 hours): Temp Pulse Resp BP Pulse Ox 97.9 F 82 20 113/77 98 12/04/18 07:00 12/04/18 07:00 12/04/18 07:00 12/04/18 07:00 12/04/18 07:00 Intake and Output: 12/04/18 12/04/18 06:59 18:59 Intake Total 240 Balance 240 - Medications Medications: Current Medications Aspirin (Aspirin) 325 mg PO DAILY [facility] Last Admin: 12/04/18 10:44 Dose: 325 mg Insulin Human Regular (Novolin R) 0 unit SC ACHS [facility]; Protocol Last Admin: 12/04/18 07:30 Dose: Not Given - Labs Labs: 11/30/18 16:44 11/30/18 16:44 PT 11.6 SECONDS (9.7-12.2) 11/30/18 16:44 INR 1.1 11/30/18 16:44 APTT 31 SECONDS (21-34) 11/30/18 16:44 - Constitutional Appears: Well - Head Exam Head Exam: ATRAUMATIC, NORMAL INSPECTION, NORMOCEPHALIC - Eye Exam Eye Exam: EOMI, Normal appearance, PERRL Pupil Exam: NORMAL ACCOMODATION, PERRL - ENT Exam ENT Exam: Mucous Membranes Moist, Normal Exam - Neck Exam Neck Exam: Full ROM, Normal Inspection. absent: Lymphadenopathy - Respiratory Exam Respiratory Exam: Decreased Breath Sounds - Cardiovascular Exam Cardiovascular Exam: REGULAR RHYTHM, +S1, +S2 - GI/Abdominal Exam GI & Abdominal Exam: Soft, Diminished Bowel Sounds - Rectal Exam Rectal Exam: Deferred
--- NOTE | 2018-12-04 13:06 | VASCLAB ---
Date of service: 12/03/2018 PROCEDURE: Carotid Duplex Exam. HISTORY: assess stenosis COMPARISON: None available. TECHNIQUE: Grayscale and duplex Doppler evaluation of the cervical carotid and vertebral arteries were performed. The common carotid, carotid bifurcations and cervical Internal Carotid Artery (ICA) and proximal External Carotid Artery (ECA) were evaluated. The vertebral arteries were evaluated for gross patency and flow direction. Report prepared by Brad Hodges, BS, RVT FINDINGS: RIGHT CAROTID ARTERIES: 1. Common Carotid Artery: No significant focal plaque formation of the right common carotid artery. Maximum Peak Systolic velocity: 110 cm/sec: End-diastolic velocity 29 cm/sec. 2. Carotid Bifurcation: plaque formation. Maximum Peak Systolic velocity: 106 cm/sec: End-diastolic velocity 33 cm/sec. 3. Internal Carotid Artery: Plaque description: 3.1. Proximal Segment: Peak systolic velocity 84 cm/sec: End-diastolic velocity 35 cm/sec - % stenosis 0-15% 3.2. Middle Segment: Peak systolic velocity 89 cm/sec: End-diastolic velocity 44 cm/sec - % stenosis 0-15% 3.3. Distal Segment: Peak systolic velocity 84 cm/sec: End-diastolic velocity 34 cm/sec - % stenosis 0-15% 4. External Carotid Artery: No significant focal plaque formation. Peak systolic velocity 81 cm/sec 5. ICA/CCA Ratio: 1.1 LEFT CAROTID ARTERIES: 1. Common Carotid Artery: No significant focal plaque formation of the left common carotid artery. Maximum Peak Systolic velocity: 117 cm/sec: End-diastolic velocity 36 cm/sec. 2. Carotid Bifurcation: plaque formation. Maximum Peak Systolic velocity: 55 cm/sec: End-diastolic velocity 18 cm/sec. 3. Internal Carotid Artery: Plaque description: 3.1. Proximal Segment: Peak systolic velocity 78 cm/sec: End-diastolic velocity 29 cm/sec - % stenosis 0-15% 3.2. Middle Segment: Peak systolic velocity 89 cm/sec: End-diastolic velocity 36 cm/sec - % stenosis 0-15% 3.3. Distal Segment: Peak systolic velocity 101 cm/sec: End-diastolic velocity 38 cm/sec - % stenosis 0-15% 4. External Carotid Artery: No significant focal plaque formation. Peak systolic velocity 86 cm/sec 5. ICA/CCA Ratio: 1.3 VERTEBRAL ARTERIES: 1. Right Vertebral Artery: The right vertebral artery flow direction is antegrade. 2. Left Vertebral Artery: The left vertebral artery flow direction is antegrade. OTHER FINDINGS: 1. Right Brachial Blood pressure: 134 mmHg. 2. Left Brachial Blood pressure: 120 mmHg. 3. No atherosclerotic calcification present IMPRESSION: RIGHT: Duplex scan does not suggest hemodynamically significant stenosis of the right extracranial carotid arteries. LEFT: Duplex scan does not suggest hemodynamically significant stenosis of the left extracranial carotid arteries.
--- NOTE | 2018-12-04 15:33 | CP.PCM.PN ---
Subjective - Date & Time of Evaluation Date of Evaluation: 12/03/18 Time of Evaluation: 11:30 - Subjective Subjective: stress test today Objective - Vital Signs/Intake and Output Vital Signs (last 24 hours): Temp Pulse Resp BP Pulse Ox 97.9 F 82 20 113/77 98 12/04/18 07:00 12/04/18 07:00 12/04/18 07:00 12/04/18 07:00 12/04/18 07:00 Intake and Output: 12/04/18 12/04/18 06:59 18:59 Intake Total 240 Balance 240 - Medications Medications: Current Medications Aspirin (Aspirin) 325 mg PO DAILY [facility] Last Admin: 12/04/18 10:44 Dose: 325 mg Insulin Human Regular (Novolin R) 0 unit SC ACHS [facility]; Protocol Last Admin: 12/04/18 13:01 Dose: Not Given - Labs Labs: 11/30/18 16:44 11/30/18 16:44 PT 11.6 SECONDS (9.7-12.2) 11/30/18 16:44 INR 1.1 11/30/18 16:44 APTT 31 SECONDS (21-34) 11/30/18 16:44 - Constitutional Appears: Well - Head Exam Head Exam: ATRAUMATIC, NORMAL INSPECTION, NORMOCEPHALIC - Eye Exam Eye Exam: EOMI, Normal appearance, PERRL Pupil Exam: NORMAL ACCOMODATION, PERRL - ENT Exam ENT Exam: Mucous Membranes Moist, Normal Exam - Neck Exam Neck Exam: Full ROM, Normal Inspection. absent: Lymphadenopathy - Respiratory Exam Respiratory Exam: Clear to Ausculation Bilateral, NORMAL BREATHING PATTERN - Cardiovascular Exam Cardiovascular Exam: REGULAR RHYTHM, +S1, +S2. absent: Murmur - GI/Abdominal Exam GI & Abdominal Exam: Soft, Normal Bowel Sounds. absent: Tenderness - Extremities Exam Extremities Exam: Full ROM, Normal Capillary Refill, Normal Inspection. absent: Joint Swelling, Pedal Edema - Back Exam Back Exam: NORMAL INSPECTION - Neurological Exam Neurological Exam: Alert, Awake, CN II-XII Intact, Normal Gait, Oriented x3 - Psychiatric Exam Psychiatric exam: Normal Affect, Normal Mood - Skin Skin Exam: Dry, Intact, Normal Color, Warm Assessment and Plan (1) Syncope Assessment & Plan: stress test today echo reviewed etiology unclear Status: Acute (2) CARMEN (dyspnea on exertion) Status: Acute
--- NOTE | 2018-12-04 15:36 | CP.PCM.PN ---
Subjective - Date & Time of Evaluation Date of Evaluation: 12/04/18 Time of Evaluation: 15:33 - Subjective Subjective: Carlos A Crespo, PGY-1, Cardiology Progress Note for Dr. Davis Patient was seen and examined at bedside. Patient reported headache and chest pain have significantly improved. Patient has no other complaints at this time. Objective - Vital Signs/Intake and Output Vital Signs (last 24 hours): Temp Pulse Resp BP Pulse Ox 97.9 F 82 20 113/77 98 12/04/18 07:00 12/04/18 07:00 12/04/18 07:00 12/04/18 07:00 12/04/18 07:00 Intake and Output: 12/04/18 12/04/18 06:59 18:59 Intake Total 240 Balance 240 - Medications Medications: Current Medications Aspirin (Aspirin) 325 mg PO DAILY [facility] Last Admin: 12/04/18 10:44 Dose: 325 mg Insulin Human Regular (Novolin R) 0 unit SC ACHS [facility]; Protocol Last Admin: 12/04/18 13:01 Dose: Not Given - Labs Labs: 11/30/18 16:44 11/30/18 16:44 PT 11.6 SECONDS (9.7-12.2) 11/30/18 16:44 INR 1.1 11/30/18 16:44 APTT 31 SECONDS (21-34) 11/30/18 16:44 - Constitutional Appears: Well, Non-toxic, No Acute Distress - Head Exam Head Exam: ATRAUMATIC, NORMAL INSPECTION, NORMOCEPHALIC - Eye Exam Eye Exam: EOMI, PERRL - ENT Exam ENT Exam: Mucous Membranes Moist - Respiratory Exam Respiratory Exam: Clear to Ausculation Bilateral, NORMAL BREATHING PATTERN - Cardiovascular Exam Cardiovascular Exam: REGULAR RHYTHM, RRR, +S1, +S2. absent: Murmur - GI/Abdominal Exam GI & Abdominal Exam: Soft, Normal Bowel Sounds. absent: Tenderness - Extremities Exam Extremities Exam: Full ROM, Normal Inspection. absent: Pedal Edema - Neurological Exam Neurological Exam: Alert, Awake, CN II-XII Intact, Oriented x3 - Skin Skin Exam: Dry, Intact, Normal Color Assessment and Plan - Assessment and Plan (Free Text) Assessment: Syncope Hypertension Dyslipidemia Plan: Syncope Hypertension Dyslipidemia Nuclear stress test: unremarkable Echo: LVEF>55%, grade I abnormal relaxation pattern Carotid doppler study: unremarkable Brain MRI and Head CT showed no acute processes Patient has been cleared for discharge from the cardiac standpoint. Patient should follow up with Dr. Davis outpatient for further workup of syncope including holter monitor. Medications: Aspirin 325 mg daily Sliding scale insulin
--- NOTE | 2018-12-04 21:49 | CARD ---
APPROVED REPORT Date of service: 11/30/2018 EKG Measurement Heart [id number] <Conclusion> Normal sinus rhythm Normal ECG
--- NOTE | 2018-12-05 13:17 | PN ---
DATE: 12/04/2018 TIME OF EVALUATION: 07:05 a.m. NEUROLOGICAL PROBLEM: Syncopal attack. PHYSICAL EXAMINATION: VITAL SIGNS: Blood pressure 123/78, mean arterial pressure of 93, respiratory rate 18, temperature 97.8 with a pulse rate of 69, regular. The patient is sleeping, arousable on calling his first name. No new neurological symptoms have been documented or witnessed. Examination is unchanged. The patient did have an electroencephalogram, which was reviewed by me and showed diffuse slow activities for his age, which is nonspecific; however, associating his history this could be postictal phenomenon. RECOMMENDATION: Continue with the present management and antiplatelets with stroke prophylaxis. The patient is advised to see me as a followup for further evaluation. The patient may need continuous monitoring with video for his seizures as well as sleep study to rule out any sleep related issues. The patient if medically stable can be discharged. Tremayne Belle MD
== END 2018-12-04 16:40 | disposition home or self-care (01) ==
LOC: C.ER 16:03 → C.9E 17:23 → C.5S 22:14
PROVIDERS: ADMIT Internal Medicine Nephrology; ATTEND Internal Medicine Nephrology
DX: R55 Syncope and collapse (principal); E78.5 Hyperlipidemia, unspecified; I10 Essential (primary) hypertension; R56.9 Unspecified convulsions; E11.51 Type 2 diabetes mellitus with diabetic peripheral angiopathy without gangrene
CPT/HCPCS: 36415; 70450; 70551; 71045; 78452; 80053; 81001; 82948; 83036; 84146; 84439; 84443; 84484; 85025; 85610; 85651; 85730; 86140; 93005; 93017; 93306; 93880; 95812; 96372; 97161; 99285; A9502; G0378; G8978; G8979; G8980; J0706; J1644